=== PATIENT | female | born 1960 | race Caucasian/White ===

== ENCOUNTER → 2022-07-20 | Outpatient (CLI) | payer MEDICAID, SELFPAY ==
--- NOTE | 2022-07-20 09:15 | EKG12_ITS ---
Test Reason : PREOP Blood Pressure : / mmHG Vent. Rate : 059 BPM Atrial Rate : 059 BPM P-R Int : 148 ms QRS Dur : 084 ms QT Int : 420 ms P-R-T Axes : 074 078 067 degrees QTc Int : 415 ms Sinus bradycardia Otherwise normal ECG Confirmed by ALPA BAEZ, SHAHRAM ([id number]), health editor DIMITRY HOUSTON ([id number]) on 07/23/2022 9:40:28 AM Referred By: Lauri Millard Confirmed By:SHAHRAM YUEN MD
[2022-07-20 10:37] LABS: Hematocrit 42.7 % (37-47); Hemoglobin 14.3 g/dL (12.0-15.0); Mean Corp Hgb Conc 33.5 g/dL (32-36); Mean Corpuscular Hgb 29.8 pg (27.0-32.0); Mean Platelet Vol. 10.7 fl (6.2-12.0); Platelet Count 343 K/mm3 (150-450); RBC Distribution Width CV 15.9 % (11.6-14.6); RBC Distribution Width SD 52.2 fl (35.1-43.9); White Blood Count 8.9 K/mm3 (4.4-11.0)
[2022-07-20 11:08] LABS: Anion Gap 7 (5-15); BUN 16 mg/dL (7-18); Chloride 107 mmol/L (98-107); EST Glomerular Filtration Rate 91 mL/min (>60); Est Glom Filt Rate - Afr Amer 110 mL/min (>60); Glucose 102 mg/dL (74-106); Potassium 4.1 mmol/L (3.5-5.1); Sodium Level 140 mmol/L (136-145)
== END | disposition home or self-care (01) ==
PROVIDERS: PCP Nurse Practitioner; Referring Provider Otolaryngology; Visit Provider Otolaryngology
DX: Z01.810 Encounter for preprocedural cardiovascular examination (principal); R00.1 Bradycardia, unspecified
CPT/HCPCS: 36415; 80048; 85027; 93005

== ENCOUNTER 2025-10-18 10:29 | Emergency (ER) | payer MEDICAID, SELFPAY ==
[2025-10-18 10:30] VITALS: BP 129/110; PULSE 86; RESP 16; TEMP 36.6; O2SAT 97
[2025-10-18 10:32] VITALS: BMI 37.0
--- NOTE | 2025-10-18 11:43 | VDLE_ITS ---
Reason For Study Reason For Study: BLE Swelling RIGHT LEFT GSV is normal. GSV is normal. CFV is compressible, spontaneous, phasic, competent CFV is compressible, spontaneous, phasic, competent, and demonstrates normal augmentation. and demonstrates normal augmentation. FV is compressible, spontaneous, phasic, competent FV is compressible, spontaneous, phasic, competent and demonstrates normal augmentation. and demonstrates normal augmentation. POP V is compressible, spontaneous, phasic, competent POP V is compressible, spontaneous, phasic, competent and demonstrates normal augmentation. and demonstrates normal augmentation. T/P Trunk is compressible. T/P Trunk is compressible. PTV is compressible. PTV is compressible. RT PerV is compressible. LT PerV is compressible. Procedure This is a venous duplex using B-mode, color flow and spectral Doppler. Exam performed in department. The exam was diagnostic. A preliminary report was called and/or faxed to ED [facility]I Curtis. VL/Venous Duplex US - Sotero Extrem Interpretation Summary Deep veins of the lower extremities are bilaterally patent and compressible seg mentally. There is no evidence of deep vein thrombosis on either side. Valvular competence appears intact within the p roximal deep venous systems bilaterally. The great saphenous veins appear bilaterally patent and compressible segmentall y. Ordering Physician: Dianne Castellon Referring Physician: Tianna Mojica Performed By: Jake Riggs RVT
--- NOTE | 2025-10-18 11:43 | RAD_ITS ---
PROCEDURE: CHEST PA AND LATERAL 10/18/2025 REASON FOR EXAM: SOB FOR 3 WEEKS TECHNIQUE: Procedure Code: RADCXR Modality: DX Procedure: CHEST PA AND LATERAL COMPARISON: October 18, 2025 FINDINGS: Hardware: None Heart: The heart size is normal. Mediastinum: The mediastinal contour is unremarkable. Lungs: Very subtle lung markings are shown in the right upper lobe. No dense consolidation seen. Bones: Mild curvature thoracolumbar spine to the right. RAD/Chest PA and Lateral IMPRESSION: Subtle lung markings in the right upper lobe. This may represent scarring or m ild pneumonitis. Reading Location: [id number]
--- NOTE | 2025-10-18 11:43 | EKG12_ITS ---
Test Reason : Blood Pressure : */* mmHG Vent. Rate : 72 BPM Atrial Rate : 72 BPM P-R Int : 160 ms QRS Dur : 76 ms QT Int : 376 ms P-R-T Axes : 63 46 44 degrees QTcB Int : 411 ms Normal sinus rhythm with sinus arrhythmia Normal ECG Confirmed by Celestine Thompson ([id number]), editor trade journal JAIME SANDHU ([id number]) on 10/19/2025 11:02:51 AM Also confirmed by Celestine Thompson ([id number]), editor trade journal JAIME SANDHU ([id number]) on 10/20/2025 11:12:28 AM Referred By: Confirmed By: Celestine Thompson
--- NOTE | 2025-10-18 11:50 | ED.VIS.DYS ---
HPI History of Present Illness Chief Complaint: Cold Sx Narrative Narrative: Patient is a 65-year-old female presenting to the emergency department for congestion in her lungs, shortness of breath and lower extremity swelling. Patient states that she has had the lower extremity swelling for a really long time. Daughter states this has been much more than a few months. About 3 weeks ago the patient developed the chest congestion. Patient denies any fever or chills. She endorses a dry cough that is sometimes productive of sputum. She states that she is a daily smoker but has decreased this recently. She denies any sore throat. Denies any chest pain, abdominal pain, diaphoresis, nausea or vomiting. Denies any history of DVT or PE. Denies any recent travel, hospitalizations or surgeries. Denies any use of oral anticoagulation. She denies any history of heart failure. PFSH PFS Home Medications ?Medication ?Instructions ?Recorded ?Last Taken ?Type aspirin 81 mg chewable tablet 1 tab PO DAILY 10/18/25 10/17/25 History diphenhydramine 25 1 tab PO QHS PRN sleep 10/18/25 10/17/25 History mg-acetaminophen 500 mg tablet (Tylenol PM Extra Strength) diphenhydramine HCl 50 mg/30 mL 12.5 mg PO QHS 10/18/25 10/17/25 History oral liquid (ZzzQuil) Allergy/AdvReac Type Severity Reaction Status Date / Time codeine Allergy Intermediate Nausea Verified 10/18/25 10:31 Penicillins (PCN) Allergy Intermediate Rash Verified 10/18/25 10:31 Social History Smoking Status: Never smoker ROS ROS ED ROS Narrative see HPI EXAM Physical Exam Narrative Exam Narrative: Vital signs: Reviewed General: Alert and orientedx3. No acute distress. Chronically ill-appearing, nontoxic HEENT: Head is normocephalic and atraumatic, sinuses nontender, pupils equal round and reactive. Nares are patent. Oropharynx and throat exams normal. Neck: Supple without lymphadenopathy nontender Cardiovascular: Regular rate and rhythm, no murmurs. No rubs or gallops. Normal S1 and S2 Respiratory: Clear to auscultation bilaterally. No wheezes, rales, rhonchi Abdominal: Soft and nontender. Normal bowel sounds. No guarding or rebound. Nonsurgical abdomen Extremities: Bilateral nonpitting edema, no asymmetry to the swelling. No erythema, warmth, drainage or tenderness to palpation of the calves. DP and PT pulses intact bilaterally. No bruising. Normal range of motion. Normal sensation. Skin: No rash or redness. Neurological: Cranial nerves II through XII are grossly intact. Normal strength and sensation. Normal cerebellar function The rest of the physical exam is unremarkable Const Vital Signs: 10/18/25 10:30 10/18/25 11:51 10/18/25 12:00 Temperature 97.8 F Temperature Source Temporal Pulse Rate 86 78 Respiratory Rate 16 16 Blood Pressure 129/110 H 130/95 H Blood Pressure Mean 116 106 Pulse Ox 97 99 Oxygen Delivery Method Room Air Room Air 10/18/25 15:06 Temperature 98.1 F Temperature Source Pulse Rate 78 Respiratory Rate 18 Blood Pressure 128/82 H Blood Pressure Mean 97 Pulse Ox 96 Oxygen Delivery Method MDM MDM MDM Narrative Medical decision making narrative: Patient is a 65-year-old female presenting to the emergency department for dyspnea, chest congestion and lower extremity edema. Patient was seen and examined. Vitals are stable. No tachycardia. No hypoxia. Patient resting in bed comfortably in no acute distress. Differential includes but is not limited to: New CHF, pneumonia, COPD exacerbation, URI, ACS, less likely pulmonary embolism Lung sounds are clear on exam I do not think she would benefit from a breathing treatment. EKG shows very poor baseline, normal sinus rhythm with sinus arrhythmia with no ischemic changes. CBC with no leukocytosis and a normal hemoglobin. BMP with no significant abnormalities. BNP within normal limits. Troponin and reflex within normal limits. Bilateral DVT ultrasounds are negative. Chest x-ray reviewed by myself, no opacities, pneumothorax or widened mediastinum noted. Radiology read with subtle lung markings in the right upper lobe. This may represent scarring or mild pneumonitis. I doubt this is a pneumonitis patient has no risk factors likely scarring. Patient and family member at bedside were updated on the lab and imaging findings. Educated them that this is likely a URI causing her chest congestion and for her lower extremity swelling she should wear compression stockings and elevate her legs at night. All questions answered. Patient discharged from the Emergency Department. I do not feel that the patient's evaluation reveals any acute reason for admission at this time. I instructed them to either follow-up with their primary care physician or promptly return to the Emergency Department for reevaluation should symptoms worsen or new symptoms develop. I explained what symptoms would indicate the need to return to the emergency department. Shared decision making was used. The patient voiced understanding of the treatment plan and is agreeable with it. Clinical impression URI Bilateral lower extremity edema History & Record Review Discussion w/independent historian: Patient and Family Lab Data Attestation: I reviewed the patient's lab results. Labs: Laboratory Results - last 24 hr 10/18/25 10/18/25 11:49 13:44 WBC 8.7 RBC 4.99 Hgb 14.9 Hct 45.1 MCV 90.4 MCH 29.9 MCHC 33.0 RDW Std Deviation 51.7 H RDW Coeff of Lauren 15.6 H Plt Count 368 MPV 9.9 Immature Gran % (Auto) 0.500 Neut % (Auto) 60.1 Lymph % (Auto) 25.7 [place] % (Auto) 7.1 Eos % (Auto) 5.6 H Baso % (Auto) 1.0 Absolute Neuts (auto) 5.3 Absolute Lymphs (auto) 2.25 Nucleated RBC % 0 Sodium 138 Potassium 4.6 Chloride 101 Carbon Dioxide 25.6 Anion Gap 11 BUN 10 Creatinine 0.62 L Estim Creat Clear Calc 113.14 Est GFR (MDRD) Non-Af 100 BUN/Creatinine Ratio 16.8 Glucose 98 Calcium 9.4 Troponin T High Sens < 6 Troponin T Hi Sens 2 Hr < 6 NT pro BNP II 213 Radiography Diagnostic Testing: Clinical Impression(s) from Imaging Studies Chest X-Ray 10/18/25 11:43 IMPRESSION: Subtle lung markings in the right upper lobe. This may represent scarring or mild pneumonitis. Reading Location: [id number] Venous Doppler Study 10/18/25 11:43 Interpretation Summary Deep veins of the lower extremities are bilaterally patent and compressible segmentally. There is no evidence of deep vein thrombosis on either side. Valvular competence appears intact within the proximal deep venous systems bilaterally. The great saphenous veins appear bilaterally patent and compressible segmentally. Ordering Physician: Dianne Castellon Referring Physician: Tianna Mojica Performed By: Jake Riggs, Fernandez Discharge Plan Triage Chief Complaint: Cold Sx ED Provider: Dianne Castellon Dx/Rx/DC Orders Clinical Impression: URI (upper respiratory infection), Bilateral edema of lower extremity Instructions: Adult Self-Care for Colds, ED Peripheral Edema, Bilateral Prescriptions: No Action aspirin 81 mg tablet,chewable 1 tab PO DAILY ZzzQuil 50 mg/30 mL liquid 12.5 mg PO QHS diphenhydramine-acetaminophen [Tylenol PM Extra Strength] 25-500 mg tablet 1 tab PO QHS PRN (Reason: sleep) Primary Care Provider: Tianna Ardon [employer] Referrals: Tianna Ardon [employer]ERGROUND [employer]ING SECTION FOREMAN, UNDERGROUND [employer]ING SECTION FOREMAN-C [Primary Care Provider, Medical] - As soon as possible Activity Restrictions/Additional Instructions: Apply compression stockings to your bilateral lower legs. You can also elevate them at night to help with swelling. Your evaluation in the Emergency Department did not reveal any acute reason for admission. However, I want to emphasize that you may be early in the course of a disease process or illness even if it is not present. For this reason you should follow-up within 24 hours for reevaluation with either your primary care physician or if necessary back here in the Emergency Department. You should return to the Emergency Department immediately if your symptoms worsen or new symptoms develop. Print Language: [place] Disposition Disposition: Home, Self Care Discharge Date/Time: 10/18/25 15:13
[2025-10-18 12:00] VITALS: BP 130/95; PULSE 78; RESP 16; O2SAT 99
[2025-10-18 12:03] LABS: Hematocrit 45.1 % (37-47); Hemoglobin 14.9 g/dL (12.0-15.0); Immature Granulocytes Count 0.040 X10^3/uL (0.0-0.0); Mean Corp Hgb Conc 33.0 g/dL (32-36); Mean Corpuscular Volume 90.4 fL (81-99); Mean Platelet Vol. 9.9 fl (6.2-12.0); NRBC Flagged by Analyzer 0 % (0-5); Platelet Count 368 K/mm3 (150-450); RBC Distribution Width CV 15.6 % (11.6-14.6); RBC Distribution Width SD 51.7 fl (35.1-43.9); Red Blood Count 4.99 M/mm3 (4.2-5.4); White Blood Count 8.7 K/mm3 (4.4-11.0)
[2025-10-18 12:35] LABS: Anion Gap 11 (5-15); BUN 10 mg/dL (4-19); BUN/Creat Ratio 16.8 RATIO (10-20); Calcium,Total 9.4 mg/dL (7.6-11.0); Carbon Dioxide 25.6 mmol/L (21.0-32.0); Chloride 101 mmol/L (98-108); Estimated Creatinine Clearance 113.14 ml/min (50-250); Glucose 98 mg/dL (70-99); Potassium 4.6 mmol/L (3.3-5.1); Pro- Brain NATRIURETIC PEPTIDE 213 pg/mL (<=900); Troponin T High Sensitivity < 6 ng/L (<=14)
[2025-10-18 14:32] LABS: Troponin T High Sens 2 HR < 6 ng/L (<=14)
[2025-10-18 15:06] VITALS: BP 128/82; PULSE 78; RESP 18; TEMP 36.7; O2SAT 96
== END 2025-10-18 15:13 | disposition home or self-care (01) ==
PROVIDERS: Emergency Provider Student in an Organized Health Care Education/Training Program; PCP Nurse Practitioner; Visit Provider Student in an Organized Health Care Education/Training Program
DX: J06.9 Acute upper respiratory infection, unspecified (principal); R60.0 Localized edema
CPT/HCPCS: 71046; 80048; 83880; 84484; 85025; 87631; 93005; 93970; 99282; A4216